=== PATIENT | female | born 1945 | race Caucasian/White ===

== ENCOUNTER 2018-11-20 15:55 | Emergency (ER) | payer BC ==
--- NOTE | 2018-11-20 16:56 | ED ---
Throat Pain/Nasal Congestion - HPI Summary HPI Summary: This pt is a 73 Y/O F presenting to [facility] with a CC of a facial injury sustained after tripping over a flower pot [employer]IN[employer] and is currently rated a 6/10 in severity due to her facial injuries. She states that she tripped and fell face first into the ground, cutting her lip. She denies hitting her nose on the ground. She states that her upper left jaw has more pain than her right side. She states that she did not have a LOC. She sates that she is dizzy. She denies any SOB, CP, N/V, headaches, or neck pain. She has no aggravating or alleviating factors. She states that she has a PMHx of a pacemaker that was put in 2 months ago. - History of Current Complaint Chief Complaint: EDFall Time Seen by Provider: 11/20/18 16:42 Hx Obtained From: Patient Onset/Duration: Sudden Onset, Still Present Severity: Moderate - 6/10 - Allergies/Home Medications Allergies/Adverse Reactions: Allergies Allergy/AdvReac Type Severity Reaction Status Date / Time haloperidol Allergy Unknown Verified 11/20/18 17:03 Reaction Details PMH/Surg Hx/FS Hx/Imm Hx Previously Healthy: Yes Infectious Disease History: No Infectious Disease History: Reports: Traveled Outside the [place] in Last 30 Days - [facility] - Social History Alcohol Use: Rare Substance Use Type: Reports: None Smoking Status (MU): Never Smoked Tobacco Review of Systems Constitutional: Other - dizzy ENT: Other - L sided jaw pain Positive: Dental Pain, Other - abrasion on her lip and nose Negative: Chest Pain Negative: Shortness Of Breath Negative: Vomiting, Nausea Musculoskeletal: Negative - neck pain Skin: Other - abrasions to her face which are bleeding Negative: Headache All Other Systems Reviewed And Are Negative: Yes Physical Exam - Summary Physical Exam Summary: Appearance: The patient is well-nourished in no acute distress and in no acute pain. Skin: Abrasion to her lower lip, swollen, Teeth are not bruised or loose, Mild abrasions to her nose, Septal hematomas HEENT: The head is normocephalic and atraumatic. The pupils are equal and reactive. The conjunctivae are clear and without drainage. Nares are patent and without drainage. Mouth reveals moist mucous membranes and the throat is without erythema and exudate. The external ears are intact. The ear canals are patent and without drainage. The tympanic membranes are intact. Neck: The neck is supple with full range of motion and non-tender. There are no carotid bruits. There is no neck vein distension. Respiratory: Chest is non-tender. Lungs are clear to auscultation and breath sounds are symmetrical and equal. Cardiovascular: Heart is regular rate and rhythm. There is no murmur or rub auscultated. There is no peripheral edema and pulses are symmetrical and equal. Abdomen: The abdomen is soft and non-tender. There are normal bowel sounds heard in all four quadrants and there is no organomegaly palpated. Musculoskeletal: There is no back tenderness noted. Extremities are non-tender with full range of motion. There is good capillary refill. There is no peripheral edema or calf tenderness elicited. Neurological: Patient is alert and oriented to person, place and time. The patient has symmetrical motor strength in all four extremities. Cranial nerves are grossly intact. Deep tendon reflexes are symmetrical and equal in all four extremities. Psychiatric: The patient has an appropriate affect and does not exhibit any anxiety or depression. Triage Information Reviewed: Yes Vital Signs On Initial Exam: Initial Vitals Temp Pulse Resp BP Pulse Ox 98.1 F 55 18 128/55 96 11/20/18 16:01 11/20/18 16:01 11/20/18 16:11/20/18 16:01 11/20/18 16:01 Vital Signs Reviewed: Yes Diagnostics - Vital Signs Vital Signs Temp Pulse Resp BP Pulse Ox 11/20/18 16:01 98.1 F 55 18 128/55 96 - Laboratory Lab Statement: Any lab studies that have been ordered have been reviewed, and results considered in the medical decision making process. EENT Course/Dx - Course Course Of Treatment: Ms. Soliz had a mechanical fall and hit her face on the pavement. She came in with a swollen and abraded lower lip and sore teeth although they were not loose. She also abraded her nose slightly. I recommended a little bit of mupirocin ointment on her lower lip to keep the abrasion soft. There was no evidence for any intracranial injury or neck injury. - Diagnoses Provider Diagnoses: Lip abrasion, Facial abrasion Discharge ED - Sign-Out/Discharge Documenting (check all that apply): Patient Departure - discharge Patient Received Moderate/Deep Sedation with Procedure: No - Discharge Plan Condition: Stable Disposition: HOME Prescriptions: Mupirocin 2% OINT* [Bactroban 2 % Oint*] 1 applic TOPICAL BID #1 tube Mupirocin 2% OINT* [Bactroban 2 % Oint*] 1 applic TOPICAL BID #1 tube Patient Education Materials: Abrasion (ED), Facial Laceration (ED) Referrals: No Primary Care Phys,NOPCP [Primary Care Provider] - 2 Days Additional Instructions: FOLLOW UP WITH YOUR PRIMARY CARE PROVIDER IN 1-3 DAYS AND RETURN TO THE EMERGENCY DEPARTMENT FOR ANY NEW OR WORSENING SYMPTOMS. - Billing Disposition and Condition Condition: STABLE Disposition: Home - Attestation Statements Document Initiated by Scribe: Yes Documenting Scribe: Curt Shell Provider For Whom Dusty is Documenting (Include Credential): Geraldo Ocampo MD Scribe Attestation: Curt Taylor , scribed for Geraldo Ocampo MD on 11/20/18 at 1939. Scribe Documentation Reviewed: Yes Provider Attestation: The documentation as recorded by the Curt reyez accurately reflects the service I personally performed and the decisions made by Geraldo gutierrez MD Status of Scribe Document: Viewed
[2018-11-20 18:06] VITALS: BP 134/62
[2018-11-20] MEDS ORDERED: Mupirocin 2% OINT* TUBE TOPICAL SCH (21:00)
== END 2018-11-20 18:04 | disposition home or self-care (01) ==
LOC: ED 15:55
DX: S00.511A Abrasion of lip, initial encounter (principal); S00.81XA Abrasion of other part of head, initial encounter; W01.198A Fall on same level from slipping, tripping and stumbling with subsequent striking against other object, initial encounter; Y92.9 Unspecified place or not applicable; Z88.8 Allergy status to other drugs, medicaments and biological substances
CPT/HCPCS: 99282